=== PATIENT | female | born 1960 | race Two or more races ===

== ENCOUNTER 2020-05-31 04:45 | Day surgery (SDC) | payer OTHER ==
[2020-05-27 17:44] VITALS: BMI 29.2
[2020-05-31] MEDS ORDERED: IBUPROFEN 400 MG TABLET (FP) PO PRN (07:53)
[2020-05-31] MEDS ORDERED: ACETAMINOPHEN 325 MG TABLET (FP) PO PRN (07:53)
[2020-05-31] MEDS ORDERED: oxyCODONE HCL 5 MG TABLET PO PRN (07:53)
--- NOTE | 2020-05-31 07:53 | HP ---
History & Physical Update - History History: No Change - Physical Physical: No Change - Assessment Assessment: No Change - Plan Plan: No Change (No change in HP)
[2020-05-31] MEDS ORDERED: ENOXAPARIN NA (PORCINE) 30 MG/0.3 ML DISP.SYRIN SQ SCH (10:00)
[2020-05-31] MEDS ORDERED: PROPOFOL 20 ML ONE (10:46)
[2020-05-31] MEDS ORDERED: MIDAZOLAM HCL 2 MG/2 ML SINGLE DOSE VIAL ONE (10:46)
[2020-05-31] MEDS ORDERED: LIDOCAINE HCL/PF 2% SDV 5ML VIAL ONE (11:01)
[2020-05-31] MEDS ORDERED: DEXAMETHASONE SOD PHOSPHATE 4 MG/1 ML VIAL ONE (11:11)
[2020-05-31] MEDS ORDERED: KETOROLAC TROMETHAMINE 30 MG/1 ML VIAL ONE (11:34)
--- NOTE | 2020-05-31 12:18 | OP ---
Operative Note - Note: Operative Date: 05/31/20 Pre-Operative Diagnosis: Submucosal myoma. endometrial polyp Operation: Hysteroscopic myomectomy. SUction DC Findings: LArge amount of polyps and submucosal myoma removed Post-Operative Diagnosis: Same as Pre-op Surgeon: Sneha Ignacio Anesthesia: General Estimated Blood Loss (mls): 25 Operative Report Dictated: Yes
[2020-05-31 14:02] VITALS: PULSE 80
[2020-05-31 16:06] VITALS: BP 120/63; TEMP 96.8
--- NOTE | 2020-05-31 20:39 | OP ---
DATE OF OPERATION: 05/31/2020 PREOPERATIVE DIAGNOSIS: Submucosal myoma, endometrial polyp. POSTOPERATIVE DIAGNOSIS: Submucosal myoma, endometrial polyp. Large amount of endometrial polyps and submucosal myoma. PROCEDURE: Hysteroscopic myomectomy, suction dilation and curettage. SURGEON: Sneha Ignacio MD. ANESTHESIA: General. ESTIMATED BLOOD LOSS: 25 mL. PROCEDURE: Patient was taken to the operating room, placed in dorsal lithotomy position. Prepped and draped in the usual sterile fashion. Timeout was performed in accordance with hospital regulation. Speculum is placed in the vagina. Anterior lip of the cervix was grasped with single-toothed tenaculum. Cervix then dilated to accommodate the operative hysteroscope. Operative hysteroscope was inserted, and a large endometrial polyp as well as submucosal myomas seen. Cautery and cutting of the endometrial polyp was done followed by suction dilation and curettage. This was repeated several times. Large amounts of polyps were removed as well as submucosal myoma. After repeating this procedure 3 or 4 times, endometrial cavity appeared to be clean. There were no polyps or myomas seen. All instruments then removed. Patient tolerated procedure well. Estimated blood loss was 25 mL. SNEHA IGNACIO M.D. [id number]
--- NOTE | 2020-06-01 17:41 | PATH ---
Surgical Pathology Report Patient Name: HORACIO GILMORE [facility]. Rec. #: [id number] /Age/Gender: 1960 (Age: 60) / F Account: [id number] Location: [facility] SURGICAL Taken: 05/31/2020 Received: 05/31/2020 Reported: 06/01/2020 Physicians: Sneha Ignacio M.D. Specimen(s) Received ENDOMETRIAL POLYP/MYOMA Clinical History Endometrial polyp/submucosal myoma Final Diagnosis ENDOMETRIAL POLYP/MYOMA, HYSTEROSCOPIC MYOMECTOMY, SUCTION DILATION AND CURETTAGE: FRAGMENTS OF ENDOMETRIAL POLYP, ENDOCERVICAL POLYP, AND RARE FIBROMUSCULAR TISSUE SUGGESTIVE OF SUBMUCOSAL LEIOMYOMA. Electronically Signed Colette Christine M.D. Gross Description Received in formalin labeled "endometrial polyp/myoma," is a 4.0 x 2.8 x 0.3 cm aggregate of lane-pink soft tissue fragments. The formalin is filtered and the specimen is entirely submitted in 2 cassettes. /05/31/2020 saudi/05/31/2020
== END 2020-05-31 16:07 | disposition home or self-care (01) ==
LOC: JASU-SURG 04:45
PROVIDERS: ATTEND Obstetrics & Gynecology
PROC: 0UB98ZZ Excision of Uterus, Via Natural or Artificial Opening Endoscopic (ICD-10-PCS; principal; 2020-05-31 09:30)
PROC: 0UDB8ZX Extraction of Endometrium, Via Natural or Artificial Opening Endoscopic, Diagnostic (ICD-10-PCS; 2020-05-31 09:30)
DX: D25.0 Submucous leiomyoma of uterus (principal); N84.0 Polyp of corpus uteri
CPT/HCPCS: 86850; 86900; 86901; 88305-TC; 94760